=== PATIENT | male | born 1945 | race Caucasian/White ===

== ENCOUNTER 2018-04-10 10:48 | Day surgery (SDC) | payer MEDICARE, BC ==
[~2018-04-10 10:48] MED LIST: DEXAMETHASONE 4 MG/ML 1 ML INJ; ONDANSETRON 4 MG INJ
[2018-04-10] MEDS ORDERED: LACTATED RINGER'S 1,000 ML IV (12:00)
[2018-04-10 12:45] LABS: ADD MAN DIFF? NO
[2018-04-10 12:47] LABS: WHITE BLOOD COUNT 4.1 10^3/ul (4.8-10.8)
[2018-04-10 12:47] LABS: BASOPHILS % 0.7 % (0.0-2.0); EOSINOPHILS # 0.1 10^3/ul (0.0-0.5); EOSINOPHILS % 1.7 % (0.0-7.0); HEMOGLOBIN 13.6 g/dl (14.0-18.0); LYMPHOCYTES # 0.9 10^3/ul (0.8-2.9); LYMPHOCYTES % 20.9 % (15.0-51.0); MEAN CORPUSCULAR HEMOGLOBIN 31.9 pg (29.0-33.0); MEAN CORPUSCULAR VOLUME 93.7 fl (82.0-101.0); MEAN PLATELET VOLUME 9.2 fl (7.4-10.4); MONOCYTE # 0.5 10^3/ul (0.3-0.9); MONOCYTES % 11.7 % (0.0-11.0); NEUTROPHIL # 2.7 10^3/ul (1.6-7.5); NEUTROPHILS % 64.8 % (39.0-77.0); PLATELET COUNT 150 10^3/UL (140-415); RED BLOOD COUNT 4.27 10^6/ul (4.70-6.10); RED CELL DISTRIBUTION WIDTH 13.3 % (11.5-14.5)
[2018-04-10 12:48] LABS: INR 0.95; PROTIME 12.8 Sec (11.9-14.9)
[2018-04-10 12:49] LABS: PARTIAL THROMBOPLASTIN TIME 26.3 Sec (23.0-35.0)
[2018-04-10 12:52] LABS: ALANINE AMINOTRANSFERASE 37 IU/L (13-69); ALBUMIN 3.9 g/dl (3.3-4.9); ALBUMIN/GLOBULIN RATIO 1.85; ALKALINE PHOSPHATASE 66 IU/L (42-121); ANION GAP 6 (5-13); ASPARTATE AMINO TRANSFERASE 33 IU/L (15-46); BILIRUBIN,INDIRECT 0.5 mg/dl (0-1.1); BILIRUBIN,TOTAL 0.5 mg/dl (0.2-1.3); BLOOD UREA NITROGEN 18 mg/dl (7-20); CARBON DIOXIDE 28 mmol/L (21-31); CHLORIDE 108 mmol/L (97-110); CREATININE 0.78 mg/dl (0.61-1.24); GLUCOSE 92 mg/dl (70-220); POTASSIUM 4.3 mmol/L (3.5-5.1); SODIUM 142 mmol/L (135-144)
[2018-04-10 12:53] LABS: HOLD TRANSMISSIONS 1
[2018-04-10] MEDS ORDERED: ROPIVACAINE 0.5 % 30 ML VIAL (13:37)
[2018-04-10] MEDS ORDERED: MIDAZOLAM 1 MG/ML 2 ML INJ (13:37)
[2018-04-10] MEDS ORDERED: POVIDONE IODINE 10% 28.4 GM OINT (13:56)
[2018-04-10] MEDS ORDERED: PROPOFOL 20 ML (14:15)
[2018-04-10] MEDS ORDERED: CEFAZOLIN 1 GM INJ (14:27)
[2018-04-10] MEDS: ROPIVACAINE 0.5 % 30 ML VIAL (15:02)
[2018-04-10] MEDS ORDERED: ROCURONIUM 50 MG INJ (16:28)
[2018-04-10] MEDS ORDERED: NEOSTIGMINE 3 MG/3 ML SYRINGE (16:28)
[2018-04-10] MEDS ORDERED: GLYCOPYRROLATE 0.4 MG INJ (16:28)
[2018-04-10] MEDS ORDERED: MEPERIDINE 25 MG INJ (16:50)
[2018-04-10] MEDS ORDERED: FENTAnyl 50 MCG/ML VIAL IV ×3 (17:00)
[2018-04-10] MEDS ORDERED: EPHEDrine SULFATE 50 MG/5 ML SYG IV (17:00)
[2018-04-10] MEDS ORDERED: LABETALOL HCL 20MG INJ IV (17:00)
[2018-04-10] MEDS ORDERED: morphine 2 MG INJ IV (17:00)
[2018-04-10] MEDS ORDERED: OXYCODONE/ACETAMINOPHEN (5/325) TAB PO ×2 (17:00)
[2018-04-10] MEDS ORDERED: DIPHENHYDRAMINE 50 MG INJ IV (17:00)
[2018-04-10] MEDS ORDERED: ONDANSETRON 4 MG INJ IV (17:00)
[2018-04-10] MEDS ORDERED: HYDROmorphONE 1 MG/5 ML IV SYRINGE IV ×2 (17:00)
[2018-04-10] MEDS: MEPERIDINE 25 MG INJ IV (17:03)
[2018-04-10] MEDS: SOD CHLORIDE 0.9% 1,000 ML IV (17:09)
[2018-04-10] MEDS: ONDANSETRON 4 MG INJ IV (17:09)
[2018-04-10] MEDS: HYDROmorphONE 1 MG/5 ML IV SYRINGE IV (17:18)
== END 2018-04-10 18:20 | disposition home or self-care (01) ==
LOC: SDS 10:48
DX: M25.872 Other specified joint disorders, left ankle and foot (principal); M94.272 Chondromalacia, left ankle and joints of left foot; M65.872 Other synovitis and tenosynovitis, left ankle and foot
CPT/HCPCS: 29898; 80053; 85025; 85610; 85730